=== PATIENT | male | born 1940 | race Caucasian/White ===

== ENCOUNTER 2017-01-20 13:02 | Outpatient (CLI) | payer MEDICARE, OTHER | END 2017-01-20 13:03 | disposition home or self-care (01) | LOC: SC 13:02 | PROVIDERS: ATTEND Nurse Practitioner Family | DX: G47.33 Obstructive sleep apnea (adult) (pediatric) (principal); G47.23 Circadian rhythm sleep disorder, irregular sleep wake type | CPT/HCPCS: 99214; G0463; 99212 ==

== ENCOUNTER 2017-02-18 15:48 | Outpatient (CLI) | payer MEDICARE, OTHER | END 2017-02-18 15:49 | disposition home or self-care (01) | LOC: SC 15:48 | PROVIDERS: ATTEND Nurse Practitioner Family | DX: G47.33 Obstructive sleep apnea (adult) (pediatric) (principal) | CPT/HCPCS: 99214; G0463; 99212 ==

== ENCOUNTER 2017-03-18 19:04 | Outpatient (CLI) | payer MEDICARE, OTHER | END 2017-03-18 19:05 | disposition home or self-care (01) | LOC: SC 19:04 | PROVIDERS: ATTEND Internal Medicine Pulmonary Disease | DX: G47.33 Obstructive sleep apnea (adult) (pediatric) (principal); G47.61 Periodic limb movement disorder | CPT/HCPCS: 95810 ==

== ENCOUNTER 2017-04-10 10:37 | Outpatient (CLI) | payer MEDICARE, OTHER | END 2017-04-10 10:38 | disposition home or self-care (01) | LOC: SC 10:37 | PROVIDERS: ATTEND Nurse Practitioner Family | DX: G47.33 Obstructive sleep apnea (adult) (pediatric) (principal); G47.61 Periodic limb movement disorder | CPT/HCPCS: 99214; G0463; 99212 ==

== ENCOUNTER 2017-05-06 11:05 | Outpatient (CLI) | payer MEDICARE, OTHER | END 2017-05-06 11:06 | disposition EMS.NT | LOC: EMS 11:05 | PROVIDERS: ATTEND Surgery | DX: R42 Dizziness and giddiness (principal); W18.39XA Other fall on same level, initial encounter; Y92.512 Supermarket, store or market as the place of occurrence of the external cause ==

== ENCOUNTER 2017-05-08 03:10 | Outpatient (CLI) | payer MEDICARE, OTHER | END 2017-05-08 03:11 | disposition critical access hospital (66) | LOC: EMS 03:10 | PROVIDERS: ATTEND Surgery | DX: R04.0 Epistaxis (principal); Z79.01 Long term (current) use of anticoagulants | CPT/HCPCS: A0425; A0429 ==

== ENCOUNTER 2017-05-08 03:40 | Emergency (ER) | payer MEDICARE, OTHER ==
[2017-05-08] MEDS ORDERED: LIDOCAINE 2%-EPI 1:100000 20 ML MDV ONE (03:51)
[2017-05-08 04:15] VITALS: BP 119/85
--- NOTE | 2017-05-08 04:26 | ED Physician Documentation ---
PD HPI HEENT - Stated complaint Stated Complaint: BLOODY NOSE - Chief complaint Chief Complaint: Heent - History obtained from History obtained from: Patient, EMS - History of Present Illness Timing - onset: How many hours ago (1), Today Timing - details: Abrupt onset, Still present Location: Nose Similar symptoms before: Has not had sx before Recently seen: Not recently seen - Additional information Additional information: Patient is a 76 year old male who was recently started on supplemental oxygen for a faulty valve. Patient is also on coumadin. Patient woke up tonight to a bloody nose. Patient tried to get it to stop for about 30 minutes but was unsuccessful. Patient called ems who brought the patient in for evaluation. Patient and family state that they have not used any type of humidifier. Review of Systems Constitutional: denies: Fever, Chills Eyes: reports: Reviewed and negative Ears: reports: Reviewed and negative Nose: reports: Epistaxis Throat: denies: Oral lesions / sores, Sore throat Cardiac: denies: Chest pain / pressure, Palpitations Respiratory: reports: Dyspnea : reports: Reviewed and negative Skin: reports: Reviewed and negative Musculoskeletal: reports: Reviewed and negative Neurologic: reports: Generalized weakness, Syncope, Confused, Altered mental status PD PAST MEDICAL HISTORY - Past Medical History Past Medical History: Yes Cardiovascular: Hypertension, High cholesterol, Atrial fibrillation, Murmur, Other Endocrine/Autoimmune: Type 2 diabetes Other Past Medical History: Aortic valve absent. O2 needs 2/2 efficient heart valve - Present Medications Home Medications: Ambulatory Orders Medication Instructions Recorded Confirmed Atorvastatin Calcium 5 mg PO DAILY 05/08/17 05/08/17 Glimepiride 8 mg PO DAILY 05/08/17 05/08/17 Lisinopril 1 tab PO DAILY 05/08/17 05/08/17 Magnesium 1 tab PO DAILY 05/08/17 05/08/17 Sotalol [Betapace] 1 tab PO BID 05/08/17 05/08/17 Torsemide 1 tab PO DAILY PRN 05/08/17 05/08/17 metFORMIN [Glucophage] 2,000 mg PO DAILY 05/08/17 05/08/17 - Allergies Allergies/Adverse Reactions: Allergies Allergy/AdvReac Type Severity Reaction Status Date / Time iodine Allergy Itching Verified 05/08/17 03:45 shellfish derived Allergy Itching Verified 05/08/17 03:45 - Social History Does the pt smoke?: No Smoking Status: Never smoker Does the pt drink ETOH?: No Does the pt have substance abuse?: No - Immunizations Immunizations are current?: Yes PD ED PE NORMAL - Vitals Vital signs reviewed: Yes - General General: Well developed/nourished - HEENT HEENT: Atraumatic, PERRL - Neck Neck: Supple, no meningeal sign - Cardiac Cardiac: RRR - Respiratory Respiratory: No respiratory distress - Abdomen Abdomen: Soft, Non tender, Non distended - Derm Derm: Warm and dry - Extremities Extremities: No deformity - Neuro Neuro: Alert and oriented X 3 - Psych Psych: Normal mood PD ED PE EXPANDED - General General: Alert, Anxious - HEENT HEENT: Left nares epistaxis (significant bleeding of left nare, source not appreciated) - Cardiac Cardiac: Murmur Present Results - Vitals Vitals: Vital Signs - 24 hr 05/08/17 05/08/17 03:45 04:14 Heart Rate 88 84 Respiratory 19 18 Rate Blood Pressure 143/92 H 119/85 H O2 Saturation 87 L 92 Oxygen O2 Source Room air Procedures - Epistaxis Site: Left Preparation: Lidocaine, Clamp / pressure applied Treatment: Ant post rhinorocket Other: Observed - no bleeding, Pt tolerated well, O2 sat WNL, Referred to ENT PD MEDICAL DECISION MAKING - ED course Complexity details: reviewed old records, re-evaluated patient, considered differential, d/w patient, d/w family ED course: Patient was seen and examined at bedside. nares were viewed but the bleeding was two brisk to evaluate the location. Rhino-rocket was soaked in lidocaine with epi before being successfully inserted. Patient was observed in the emergency department with no new bleeding. Patient and family were given detailed discharge and return instructions. Patient required no further work up and was stable for discharge with outpatient follow up. Departure - Departure Disposition: 01 Home, Self Care Clinical Impression: Epistaxis Condition: Good Instructions: ED Nasal Packing Anterior Removable Follow-Up: primary,care provider [Other] - Within 3 Days Comments: Your symptoms today are being caused by a nose bleed, likely secondary to the oxygen. You will need to have the packing removed in 72 hours. You can have it removed by your pmd, ent or in an emergency department. You should return to the emergency department at any time for new, worsening or uncontrollable bleeding.
--- NOTE | 2017-05-08 16:14 | ED Physician Documentation ---
ED Addendum - Addendum Addendum: 05/08/17 16:13 chart accessed to assist preconstruction manager
== END 2017-05-08 04:40 | disposition home or self-care (01) ==
LOC: EDUNIT# → EDBD → ED 03:40
DX: R04.0 Epistaxis (principal); I10 Essential (primary) hypertension; E78.00 Pure hypercholesterolemia, unspecified; E11.9 Type 2 diabetes mellitus without complications; I48.91 Unspecified atrial fibrillation; Q23.0 Congenital stenosis of aortic valve; Z79.84 Long term (current) use of oral hypoglycemic drugs; Z79.01 Long term (current) use of anticoagulants
CPT/HCPCS: 30905; 99283

== ENCOUNTER 2017-09-06 20:29 | Outpatient (CLI) | payer MEDICARE, OTHER | END 2017-09-06 20:30 | disposition home or self-care (01) | LOC: SC 20:29 | PROVIDERS: ATTEND Internal Medicine Pulmonary Disease | DX: Z53.9 Procedure and treatment not carried out, unspecified reason (principal) | CPT/HCPCS: 95811 ==

== ENCOUNTER 2017-12-10 10:02 | Outpatient (CLI) | payer MEDICARE, OTHER | END 2017-12-10 10:03 | disposition home or self-care (01) | LOC: SC 10:02 | PROVIDERS: ATTEND Nurse Practitioner Family | DX: G47.33 Obstructive sleep apnea (adult) (pediatric) (principal); F40.240 Claustrophobia | CPT/HCPCS: 99214; G0463; 99212 ==

== ENCOUNTER 2017-12-27 19:44 | Outpatient (CLI) | payer MEDICARE, OTHER | END 2017-12-27 19:45 | disposition home or self-care (01) | LOC: SC 19:44 | PROVIDERS: ATTEND Internal Medicine Pulmonary Disease | DX: G47.31 Primary central sleep apnea (principal); G47.61 Periodic limb movement disorder | CPT/HCPCS: 95810 ==

== ENCOUNTER 2018-01-12 09:44 | Outpatient (CLI) | payer MEDICARE, OTHER | END 2018-01-12 09:45 | disposition home or self-care (01) | LOC: SC 09:44 | PROVIDERS: ATTEND Internal Medicine Pulmonary Disease | DX: G47.31 Primary central sleep apnea (principal) | CPT/HCPCS: 99213; G0463; 99212 ==

== ENCOUNTER 2018-05-30 07:33 | Outpatient (CLI) | payer MEDICARE, OTHER | END 2018-05-30 07:34 | disposition short-term general hospital (02) | LOC: EMS 07:33 | PROVIDERS: ATTEND Surgery | DX: R73.09 Other abnormal glucose (principal) | CPT/HCPCS: A0425; A0427 ==

== ENCOUNTER 2018-09-29 09:51 | Outpatient (CLI) | payer MEDICARE, OTHER | END 2018-09-29 09:52 | disposition home or self-care (01) | LOC: SC 09:51 | PROVIDERS: ATTEND Internal Medicine Pulmonary Disease | DX: G47.31 Primary central sleep apnea (principal); G47.00 Insomnia, unspecified | CPT/HCPCS: 99213; G0463; 99212 ==

== ENCOUNTER 2018-10-13 19:19 | Outpatient (CLI) | payer MEDICARE, OTHER | END 2018-10-13 19:20 | disposition home or self-care (01) | LOC: SC 19:19 | PROVIDERS: ATTEND Internal Medicine Pulmonary Disease | DX: G47.61 Periodic limb movement disorder (principal) | CPT/HCPCS: 95810 ==

== ENCOUNTER 2018-11-16 13:52 | Outpatient (CLI) | payer MEDICARE, OTHER | END 2018-11-16 13:53 | disposition home or self-care (01) | LOC: SC 13:52 | PROVIDERS: ATTEND Internal Medicine Pulmonary Disease | DX: G47.00 Insomnia, unspecified (principal) | CPT/HCPCS: 99213; G0463; 99212 ==

== ENCOUNTER 2019-02-01 14:46 | Outpatient (CLI) | payer MEDICARE, OTHER ==
--- NOTE | 2019-02-01 15:41 | CONSULTATION NOTE ---
Palliative Care Consultation - Referral Referring Provider: Dr Barbie Casey, [facility] in [place] Time of Visit: 02/01/2019. 10:45 - 12:45 Referral setting: Home Referral Reason: CHF - Information Sources Records reviewed: Previous records reviewed History/Review of Systems obtained from: Patient, Family Exam limitations: No limitations - History of Present Illness Brief History of Present Illness: Thank you, Dr. Casey, for asking the palliative care consult service to be involved in the care of your patient. I am asked to provide support regarding symptom management, clarifying goals, and advance care planning. 78-year-old man with multiple comorbidities including DMII, PAH, recurrent a scites from non-etoh cirrhosis of the liver; chronic insomnia x 2 years. He is living at home with his and would benefit from palliative care support and monitoring as needed. Medical history: Pulmonary arterial hypertension by cath 03/2017; chronic afib on Coumadin; ICD placement 2014; HTN; HLD; CHF (EF 40%); CKD IV; DM II on insulin; COPD; aortic stenosis with bovine valve replacement 2013; h/o PFO (patent foramen ovale) closure 07/2018; former smoker x 58 years. Patient is alert and pleasant. Patient reports insomnia for several years, he is able to fall asleep but wakes up after 1-2 hours and does this throughout the night. He reports being hungry at times and getting up to eat. On the occasions when he can sleep for 7-8 hours he feels much better. Discussed sleep hygiene. Patient and spouse report he's had 4 different sleep studies. 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 The sleep physician notes that patient falls asleep frequently during the day, and so does not sleep much at night. Because of his limited mobility this will be difficult to correct, but the patient is getting sufficient sleep. He recently started mirtazapine but slept excessively, and his said she couldn't wake him up. The dosing was decreased from 15 to 7.5mg, and there are no more problems waking him. Patient also reports he sweat when he eats, this has been going on "for awhile." It often happens when he goes out to eat, or eats fried foods. It happens less frequently when he eats small meals or snacks at home. Patient does report he used to be "big eater" and years ago he weighed 286 lbs. His current baseline weight is 170 lbs, but it's up today at 183 lbs due to ascites. Patient has non-alcoholic cirrhosis of the liver and recurrent ascites. He reports paracentesis is done every 2-3 weeks. Next paracentesis is this Friday. He has an endoscopy scheduled for March and a consultation with his front end software developer after that. Patient reports increasing lower extremity weakness, has difficulty transferring from easy chair to standing. Patient is on cardiac rehab, currently on 2x/week, although today's session he has postponed due to weakness. The plan is to increase his sessions to 3x/week as he gets stronger. Patient also complains of cramps in his left hand. They have used a magnesium oil spray with good results, although the pain returns after a few weeks. Patient has also seen homeopathic cryptologic support specialist [place], for insomnia help. It's been a few months since they've been back. Spouse reports that patient's diabetes is controlled with long acting insulin and short-acting as needed. His most recent A1C was 6.0. It has been as high as 8 in the past. He has seen the unix architect for lesion on R ear, had a biopsy. They said it wasn't the "bad" cancer (melanoma), and they are unclear on what the lesion is, possibly squamous. Patient expresses stress at making a decision to leave it or have it removed. Says he cannot get a straight answer. Patient complains of pain, tenderness in feet, denies neuropathic symptoms (burning, tingling, numbness). Spouse also notes that he is depressed and anxious over his health conditions, but starting sertraline about 2 months ago has improved his mood and lessened his anxiety. Medical/Surgical History - Past Medical History Cardiovascular: reports: Hypertension, High cholesterol, Atrial fibrillation (on coumadin), Murmur, Other (pulmonary arterial hypertension by cath 03/2017) Respiratory: reports: COPD Endocrine/Autoimmune: reports: Type 2 diabetes (on insulin) : reports: Renal insuffiency (CKD IV), Kidney stones Psych: reports: Depression, Anxiety Derm: reports: Other (seborrheeic keratosis) MRSA Hx?: No - Past Surgical History Cardiovascular: reports: Valve replacement (severe aortic stenosis s/p bovine valve replacement 12/2013), AICD (placement 2014), Other (PFO (patent foramen ovale) closure 07/2018. Left atrial appendage occlusion performed during open heart surgery, cardioverted 05/2015.) - Substance History Tobacco Details: Cigarettes (1 ppd x 58 years; quit 2005. No alcohol use.) Social History - Living Situation Living arrangement: At home Living Situation: With spouse/s.o. Support System: Patient and have been 20 years. He worked as a [employer]er, and moved to [facility] 33 years ago. He formerly flew light aircraft, and also enjoyed boating. Patient has one daughter who lives in [place]. Family History - Family History Family History Comment/Other: Father , cause/age unknown. Mother around age 60, cancer. Brother around age 65, bladder cancer. Medications/Allergies - Medications Home Medications: Ambulatory Orders Medication Instructions Recorded Confirmed Sotalol [Betapace] 40 mg PO DAILY 05/08/17 05/08/17 Cholecalciferol (Vitamin D3) 2,000 unit PO DAILY 02/01/19 02/01/19 [Vitamin D] Digoxin 125 mcg PO DAILY 02/01/19 02/01/19 Eplerenone 50 mg PO BID 02/01/19 02/01/19 Ferrous Sulfate 325 mg PO DAILY 02/01/19 02/01/19 Insulin Glargine [Lantus Solostar] 24 units SQ QPM 02/01/19 02/01/19 Insulin Lispro [Humalog Kwikpen 6 units SQ AC PRN MDD if BG > 120 02/01/19 02/01/19 U-100] Lactulose 10 ml PO TIDWM 02/01/19 02/01/19 Mirtazapine 7.5 mg PO .QPM 02/01/19 02/01/19 Multivitamin [Multivitamins] 1 cap PO DAILY 02/01/19 02/01/19 Potassium Chloride 10 meq PO DAILY 02/01/19 02/01/19 [place] Oil 1,000 mg PO .QPM 02/01/19 Selexipag [Uptravi] 600 mcg PO BID 02/01/19 02/01/19 Sertraline [Zoloft] 50 mg PO .QPM 02/01/19 02/01/19 Sildenafil Citrate [Sildenafil] 20 mg PO .BID-TID 02/01/19 02/01/19 Tamsulosin [Flomax] 0.4 mg PO DAILY 02/01/19 02/01/19 Torsemide 20 mg PO DAILY MDD with 100mg tab 02/01/19 02/01/19 = 120mg QD Torsemide 100 mg PO DAILY MDD with 20mg tab 02/01/19 02/01/19 = 120mg QD Turmeric Root Extract [Turmeric] 1,000 mg PO DAILY 02/01/19 02/01/19 Warfarin Sodium 5 mg PO .FOR 4 DAYS/WEEK 02/01/19 02/01/19 Warfarin Sodium [Coumadin] 7 mg PO .FOR 3 DAYS/WEEK 02/01/19 02/01/19 metOLazone [Metolazone] 2.5 mg PO .2X/WEEK 02/01/19 02/01/19 - Allergies Allergies/Adverse Reactions: Allergies Allergy/AdvReac Type Severity Reaction Status Date / Time iodine Allergy Itching Verified 05/08/17 03:45 shellfish derived Allergy Itching Verified 05/08/17 03:45 Review of Systems - Constitutional Constitutional: reports: Fatigue, Diaphoresis (when he eats meals, especially eating out or fried foods), Weight gain (Baseline weight is 170 lbs. Weight today is 181 lbs, yesterday 183 lbs, due to ascites. Paracentesis scheduled for this Friday. Previously patient weighed 286 lbs years ago.) - Ears, Nose & Throat Ears, Nose & Throat: reports: Dentures. denies: Hearing loss (mild/moderate), Hearing aids - Cardiovascular Cardiovascular: reports: Irregular heart rate (afib), Edema, Decr. exercise tolerance - Respiratory Respiratory: denies: Cough, SOB at rest, SOB with exertion - Gastrointestinal Gastrointestinal: reports: Good appetite. denies: Constipation (improved with lactulose) - Genitourinary Genitourinary: denies: Dysuria - Musculoskeletal Musculoskeletal: reports: Transfer issues, Other (denies MSK pain). denies: Assistive devices - Integumentary Integumentary: reports: Other (easily bruises, skin tears) - Neurological Neurological: reports: General weakness, Focal weakness (weak lower extremities) - Psychiatric Psychiatric: reports: Depression (improved on sertraline), Anxiety (improved on sertraline) - Endocrine Endocrine: reports: Diabetes type 2 - Hematologic/Lymphatic Hematologic/Lymphatic: reports: Anemia, Bruising, Bleeding tendencies Physical Exam - Vital Signs Temperature: 96.3 F Pulse Rate: 78 O2 Saturation: 95 (2L O2) Blood Pressure: 91/58 (wrist cuff) - Physical Exam General Appearance: positive: No acute distress, Alert Eyes Bilateral: positive: Normal inspection ENT: positive: No signs of dehydration Neck: positive: Trachea midline Cardiovascular: positive: Regular rate & rhythm, No murmur, No gallop Respiratory: positive: Chest non-tender, No respiratory distress, Diminished throughout Abdomen: positive: Non-tender, Distended (ascites), Taut Skin: positive: Bruising Extremities: positive: Pedal edema (1+), Other (skin of lower extremity appears shiny, taut) Neurologic/Psychiatric: positive: Oriented x3, Mood/affect nml Palliative Care - POLST Patient has POLST: Yes POLST Status: Selective Treatment, Full Code (He wants CPR) Pain: No pain Tiredness/Fatigue: Moderate (4-6) Drowsiness/Sedation: None Nausea: None Depression: Moderate (4-6) Anxiety: Moderate (4-6) Dyspnea: None Anorexia: None Sleep: Sleeps poorly, Variable sleep pattern (falls asleep, but sleeps for only 1-2 hours at a time) Constipation: Comment (has chronic constipation but not since he's been using lactulose) Feelings of wellbeing/Perceived Quality of Life: Fair Performance Status: Continual oxygen 2-3L. Difficulties with self transferring from low easy chair Ambulatory without walker Weak lower extremities Performs ADLs GENEVIEVE INDEX (All-cause 1-year mortality risk for community-dwelling adults age 65 and over): 36.5% Risk calculators cannot predict the future for any one individual. Risk calculators give an estimate of how many people with similar risk factors will live and , but they cannot identify who will live and who will . - Palliative Care Discussion: Patient states he has lost confidence in doctors, and "I don't get straight answers from doctors." He and his reports he has had 2 cardiologists, 2 pulmonologists, a urologist, a front end software developer, a unix architect and has had several PCPs. His big concerns are his heart, his cirrhosis, and his kidney disease. He also is concerned about the chronic insomnia, recurrent cramps in L hand, increased muscle weakness in the lower extremities, sweating when he eats, fingernail biting. For his insomnia, he has tried melatonin, and ambien, neither have worked. Recently he was started on mirtazapine and was over sedated, which was resolved with a dose reduction. Patient does report depression and feeling anxious about his health conditions. We explored this. has noted that starting sertraline has helped, he has been less ramos and anxious. The patient is agreeable to increasing the dosage. We had a long discussion on goals of care and how it relates to the POLST form. Patient does say comfort is more important to him than longevity. He is supportive of hospital transfer and would not want ongoing life support. But he is also concerned about how it would affect his , making it difficult for him to actually express his choice. We had an extended discussion on CPR, and CAR RESTORER provided education on generally poor outcomes. Provided education that the POLST is a guideline and it can be decided on a case by case basis. Patient appeared overwhelmed and repeatedly stated he "could not say," and can't make a decision about CPR vs DNR, selective vs comfort care. We eventually agreed that he remain on CPR, and switched him from full treatment to selective treatment. He does not want to be placed on long-term life support, but short-term is acceptable. His is supportive of his choice. We did discuss the continuum of care, including Hospice and the Hospice benefit; the patient has had a positive experience with Hospice; his first was on Hospice before she . Results - Lab Results Lab results reviewed: Yes Impression and Recommendations - Palliative Care Impression: 78-year-old man with multiple comorbidities including DMII, PAH, recurrent ascites from non-etoh cirrhosis of the liver; chronic insomnia x 2 years. He is living at home with his and would benefit from palliative care oversight and monitoring as needed. Recommendations/Counseling Done: Insomnia: The patient has had 4 sleep studies. 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 The sleep physician notes that patient falls asleep frequently during the day, and so does not sleep much at night. Because of his limited mobility this will be difficult to correct, but he reassured the patient is getting sufficient sleep. Today we discussed sleep hygiene techniques, reiterated that he should avoid sleeping during the day. He will continue on Mirtazapine 7.5mg, decreased from 15mg. Patient eats dinner around 530pm, then a snack 630pm, goes to bed 3 hours later, and says when he wakes up during the night sometimes he is hungry and gets up to eat. Suggested trying to add, about a half hour before bed, a very small snack, low carb, with healthy fat / protein, eg, a few macadamia nuts or cashews Diabetes: Controlled with Lantus every evening and humalog 6 units as needed if BG > 120. Latest A1c is 6.0%. HTN: BP low today, 91/58, spouse reports this is his baseline. They report his lead net software developer wants to keep BP on the low side for the Uptravi / selexipag. PAH: Patient on continuous O2 2-3L. Continue Uptravi / selexipag and sildenafil. Atrial fibrillation: Coumadin for anticoagulation; sotalol for rate control. COPD: On continuous oxygen, 2-3L, checks O2 sats several times per day. Patient is not on any inhalers, denies SOA. CKD: Is following up with urologist shortly. CHF: PFO closure was successfully done July 2018. Is on cardiac rehab, currently twice weekly, with plan to increase to 3x weekly as stamina builds. Continue metolazone, torsemide, and eplerenone and O2. Foot pain: Patient denies neuropathic pain (tingling, numb, burning), has mild ankle edema. Counselled elevation throughout day, light compression hose, or a product like tubigrip. Demonstrated massage techniques, joint manipulation, gentle lymphatic massage. Lesion, R ear: Being followed up by unix architect, biopsy pending. It is irritated by cannula for oxygen, foam pads have not helped. Suggested sewing buttons on to the side of a baseball hat to use has "hooks" for the cannula. Depression with anxiety: Improved after starting sertraline 25mg QPM about 2 months ago. Agreed to trial an increase to sertraline 50mg QPM. Cirrhosis, non-alcoholic: Chronic, recurrent ascites, with recurrent paracentesis Q2-3 weeks. Next scheduled paracentesis is this Friday. Patient has endoscopy scheduled for March and will see the GE physician after that. Continue lactulose. Avoid statins, Tylenol, alcohol. Advance care planning: Revised POLST, still CPR but with selective treatment; abx for prolongation of life; no tube feeding. Patient wants hospitalization but not long-term life support. Time Spent: 120 minutes were spent with more than 50% of the time spent on counseling, education, providing anticipatory guidance and coordination of care with family.
== END 2019-02-01 14:47 | disposition home or self-care (01) ==
LOC: PC 14:46
PROVIDERS: ATTEND Nurse Practitioner
DX: Z51.5 Encounter for palliative care (principal); F51.04 Psychophysiologic insomnia; E11.22 Type 2 diabetes mellitus with diabetic chronic kidney disease; I13.0 Hypertensive heart and chronic kidney disease with heart failure and stage 1 through stage 4 chronic kidney disease, or unspecified chronic kidney disease; N18.4 Chronic kidney disease, stage 4 (severe); I50.9 Heart failure, unspecified; I27.21 Secondary pulmonary arterial hypertension; F41.8 Other specified anxiety disorders; K74.60 Unspecified cirrhosis of liver; I48.91 Unspecified atrial fibrillation; R18.8 Other ascites; J44.9 Chronic obstructive pulmonary disease, unspecified; R53.1 Weakness; R61 Generalized hyperhidrosis; Z79.4 Long term (current) use of insulin; Z79.899 Other long term (current) drug therapy; Z99.81 Dependence on supplemental oxygen; Z79.01 Long term (current) use of anticoagulants; R53.83 Other fatigue; R25.2 Cramp and spasm; M79.673 Pain in unspecified foot; Z87.891 Personal history of nicotine dependence; Z98.890 Other specified postprocedural states
CPT/HCPCS: 99345

== ENCOUNTER 2019-04-20 12:59 | Outpatient (CLI) | payer MEDICARE, OTHER | END 2019-04-20 13:00 | disposition short-term general hospital (02) | LOC: EMS 12:59 | PROVIDERS: ATTEND Surgery | DX: S01.81XA Laceration without foreign body of other part of head, initial encounter (principal); W01.0XXA Fall on same level from slipping, tripping and stumbling without subsequent striking against object, initial encounter; Y92.480 Sidewalk as the place of occurrence of the external cause | CPT/HCPCS: A0425; A0429 ==

== ENCOUNTER 2019-10-04 01:45 | Outpatient (CLI) | payer MEDICARE, OTHER | END 2019-10-04 01:46 | disposition EMS.NT | LOC: EMS 01:45 | PROVIDERS: ATTEND Surgery | DX: Z03.89 Encounter for observation for other suspected diseases and conditions ruled out (principal) ==

== ENCOUNTER 2020-02-28 10:26 | Outpatient (CLI) | payer MEDICARE, OTHER | END 2020-02-28 10:27 | disposition EMS.NT | LOC: EMS 10:26 | PROVIDERS: ATTEND Surgery | DX: R46.89 Other symptoms and signs involving appearance and behavior (principal) ==

== ENCOUNTER 2020-03-13 00:25 | Outpatient (CLI) | payer MEDICARE, OTHER | END 2020-03-13 00:26 | disposition EMS.NT | LOC: EMS 00:25 | PROVIDERS: ATTEND Surgery | DX: Z03.89 Encounter for observation for other suspected diseases and conditions ruled out (principal) ==

== ENCOUNTER → 2020-03-30 | Outpatient (CLI) | payer MEDICARE, OTHER | END | disposition short-term general hospital (02) | LOC: EMS 12:54 | PROVIDERS: ATTEND Surgery | DX: R53.1 Weakness (principal); R03.1 Nonspecific low blood-pressure reading | CPT/HCPCS: A0425; A0427; A0888 ==

== ENCOUNTER 2020-05-06 02:04 | Outpatient (CLI) | payer MEDICARE, OTHER | END 2020-05-06 02:05 | disposition EMS.NT | LOC: EMS 02:04 | PROVIDERS: ATTEND Surgery | DX: S49.92XA Unspecified injury of left shoulder and upper arm, initial encounter (principal); W18.49XA Other slipping, tripping and stumbling without falling, initial encounter; Y92.009 Unspecified place in unspecified non-institutional (private) residence as the place of occurrence of the external cause ==

== ENCOUNTER 2020-05-12 18:01 | Outpatient (CLI) | payer MEDICARE, OTHER | END 2020-05-12 18:02 | disposition critical access hospital (66) | LOC: EMS 18:01 | PROVIDERS: ATTEND Surgery | DX: S00.31XA Abrasion of nose, initial encounter (principal); S41.112A Laceration without foreign body of left upper arm, initial encounter; S41.111A Laceration without foreign body of right upper arm, initial encounter; W18.39XA Other fall on same level, initial encounter; Y92.009 Unspecified place in unspecified non-institutional (private) residence as the place of occurrence of the external cause | CPT/HCPCS: A0425; A0429 ==

== ENCOUNTER 2020-05-12 18:48 | Emergency (ER) | payer MEDICARE, OTHER ==
[2020-05-12] MEDS ORDERED: TETANUS/DIPHTHERIA/PERTUSSIS 0.5 ML SYRINGE IM ONE (18:54)
--- NOTE | 2020-05-12 18:58 | ED Physician Documentation ---
PD HPI Fall - Stated complaint Stated Complaint: GLF - History obtained from History obtained from: EMS - History of Present Illness Mechanism of injury: Slipped - Additional information Additional information: This is a pleasant but demented gentleman who presents by ambulance after a witnessed fall at home. Reportedly fell backwards hitting a planter with the his upper back. There was no loss of consciousness. He has multiple skin tears, some new, some old. Tetanus status is unknown. No loss of consciousness. He is at his mental baseline per family per report from EMS. Review of Systems Ten Systems: 10 systems reviewed and negative Constitutional: reports: Reviewed and negative Ears: reports: Reviewed and negative Nose: reports: Reviewed and negative PD PAST MEDICAL HISTORY - Past Medical History Cardiovascular: Hypertension, High cholesterol, Atrial fibrillation (on coumadin), Murmur, Other (pulmonary arterial hypertension by cath 03/2017) Respiratory: COPD Endocrine/Autoimmune: Type 2 diabetes (on insulin) : Renal insuffiency (CKD IV), Kidney stones Psych: Depression, Anxiety Derm: Other (seborrheeic keratosis) - Past Surgical History Cardiovascular: Valve replacement (severe aortic stenosis s/p bovine valve replacement 12/2013), AICD (placement 2014), Other (PFO (patent foramen ovale) closure 07/2018. Left atrial appendage occlusion performed during open heart surgery, cardioverted 05/2015.) - Present Medications Home Medications: Ambulatory Orders Medication Instructions Recorded Confirmed Sotalol [Betapace] 40 mg PO DAILY 05/08/17 05/08/17 Cholecalciferol (Vitamin D3) 2,000 unit PO DAILY 02/01/19 02/01/19 [Vitamin D] Digoxin 125 mcg PO DAILY 02/01/19 02/01/19 Eplerenone 50 mg PO BID 02/01/19 02/01/19 Ferrous Sulfate 325 mg PO DAILY 02/01/19 02/01/19 Insulin Glargine [Lantus Solostar] 24 units SQ QPM 02/01/19 02/01/19 Insulin Lispro [Humalog Kwikpen 6 units SQ AC PRN MDD if BG > 120 02/01/19 02/01/19 U-100] Lactulose 10 ml PO TIDWM 02/01/19 02/01/19 Mirtazapine 7.5 mg PO .QPM 02/01/19 02/01/19 Multivitamin [Multivitamins] 1 cap PO DAILY 02/01/19 02/01/19 Potassium Chloride 10 meq PO DAILY 02/01/19 02/01/19 Laura Oil 1,000 mg PO .QPM 02/01/19 Selexipag [Uptravi] 600 mcg PO BID 02/01/19 02/01/19 Sertraline [Zoloft] 50 mg PO .QPM 02/01/19 02/01/19 Sildenafil Citrate [Sildenafil] 20 mg PO .BID-TID 02/01/19 02/01/19 Tamsulosin [Flomax] 0.4 mg PO DAILY 02/01/19 02/01/19 Torsemide 20 mg PO DAILY MDD with 100mg tab 02/01/19 02/01/19 = 120mg QD Torsemide 100 mg PO DAILY MDD with 20mg tab 02/01/19 02/01/19 = 120mg QD Turmeric Root Extract [Turmeric] 1,000 mg PO DAILY 02/01/19 02/01/19 Warfarin Sodium 5 mg PO .FOR 4 DAYS/WEEK 02/01/19 02/01/19 Warfarin Sodium [Coumadin] 7 mg PO .FOR 3 DAYS/WEEK 02/01/19 02/01/19 metOLazone [Metolazone] 2.5 mg PO .2X/WEEK 02/01/19 02/01/19 - Allergies Allergies/Adverse Reactions: Allergies Allergy/AdvReac Type Severity Reaction Status Date / Time iodine Allergy Itching Verified 05/08/17 03:45 shellfish derived Allergy Itching Verified 05/08/17 03:45 - Social History Does the pt smoke?: No Smoking Status: Never smoker Does the pt drink ETOH?: No Does the pt have substance abuse?: No - Immunizations Immunizations are current?: Yes - POLST Patient has POLST: Yes PD ED PE NORMAL - Vitals Vital signs reviewed: Yes - General General: Other (A/O x2) - HEENT HEENT: PERRL, EOMI, Other (Scrape over the bridge of the nose, no tenderness.) - Neck Neck: No bony TTP (Maintained in a c-collar pending imaging given advanced age and dementia) - Cardiac Cardiac: RRR, No murmur - Respiratory Respiratory: No respiratory distress, Clear bilaterally, Other (Tender right lower lateral chest wall without visible injury there.) - Abdomen Abdomen: Non tender - Extremities Extremities: Other (Multiple skin tears both forearms, no tenderness or limited range of motion) - Neuro Neuro: No motor deficit, No sensory deficit, Normal speech Eye Opening: Spontaneous Motor: Obeys Commands Results - Vitals Vitals: Vital Signs - 24 hr 05/12/20 18:58 Temperature 36.5 C Heart Rate 87 Respiratory 17 Rate Blood Pressure 102/66 O2 Saturation 98 Oxygen O2 Source Room air - Rads (name of study) Head, C-spine, and chest Radiology: EMP read contemporaneously (No acute disease in the head or neck. Left clavicular fracture and possible compression fractures at T1 and T5 of unclear chronicity.) PD MEDICAL DECISION MAKING - ED course ED course: 79-year-old gentleman with cirrhosis and dementia presents after a fall tonight. He does fall frequently per the , every few days. She is taking excellent general care of him. He had multiple skin tears on both upper extremities which were irrigated, some closed with Mepitel and some with Steri-Strips and Dermabond. He was reexamined after imaging, he has no tenderness of the clavicle on the left, and the knew of a prior injury there so assume this was chronic. Also no tenderness of T1 or T5. Departure - Departure Disposition: 01 Home, Self Care Clinical Impression: Multiple skin tears Injury of back Qualifiers: Encounter type: initial encounter Qualified Code(s): S39.92XA - Unspecified injury of lower back, initial encounter Fall Qualifiers: Encounter type: initial encounter Qualified Code(s): W19.XXXA - Unspecified fall, initial encounter Nasal abrasion Qualifiers: Encounter type: initial encounter Qualified Code(s): S00.31XA - Abrasion of nose, initial encounter Cirrhosis Qualifiers: Hepatic cirrhosis type: unspecified hepatic cirrhosis Ascites presence: with ascites Qualified Code(s): K74.60 - Unspecified cirrhosis of liver; R18.8 - Other ascites Condition: Good Record reviewed to determine appropriate education?: Yes Instructions: ED Dementia Caregiver Support, ED Prevention Fall, ED Avulsion Dermal Comments: Talk with your doctor about re-enrolling with wound care for ongoing care of multiple wounds. Return as needed.
--- NOTE | 2020-05-12 19:36 | CT Report ---
PROCEDURE: CERVICAL SPINE WO INDICATIONS: neck inj, fall TECHNIQUE: Noncontrast 3 mm thick sections acquired from the skull base to the T4 level. Sagittal and coronal r eformats were then constructed. For radiation dose reduction, the following was used: automated exp osure control, adjustment of mA and/or kV according to patient size. COMPARISON: None. FINDINGS: Image quality: Excellent. Bones: There is a comminuted fracture of the medial left clavicle. There is mild depression at the in ferior T1 endplate which has a sclerotic appearance. A prominent vascular groove is noted left aspect of the C2 vertebral body. Moderate to severe degenerative changes are present throughout the mid cer vical spine including intervertebral disc space narrowing, endplate sclerosis, and osteophytosis. Soft tissues: Prevertebral soft tissues are normal in thickness. No paravertebral hematomas. No ap ical pneumothoraces. IMPRESSION: Comminuted displaced medial left clavicular fracture. Mild depression of the inferior T1 endplate which may be a chronic finding. However, acute compressio n forming cannot be excluded. If the patient endorses pain in this region, MRI without contrast could be used to evaluate for marrow edema in the acute setting. No other findings to suggest acute cervical spine injury. Moderate to severe degenerative changes of the cervical spine. Reviewed by: Lilli Craig MD on 05/12/2020 7:34 PM PDT Approved by: Lilli Craig MD on 05/12/2020 7:34 PM PDT Station ID: [id number]
--- NOTE | 2020-05-12 19:42 | CT Report ---
PROCEDURE: HEAD WO INDICATIONS: head inj, fall TECHNIQUE: Noncontrast 4.5 mm thick angled axial sections acquired from the foramen magnum to the vertex. For r adiation dose reduction, the following was used: automated exposure control, adjustment of mA and/or kV according to patient size. COMPARISON: None. FINDINGS: Image quality: Motion artifact somewhat limits evaluation of the skull base. CSF spaces: Basal cisterns are patent. No extra-axial fluid collections. Ventricles are normal in size and shape. Brain: No midline shift. No intracranial masses or hemorrhage. Swift-white matter interface is norm al. There is volume loss, greater than expected for patient age. Deep and periventricular white matte r changes are noted likely associated with chronic microvascular ischemia. Skull and face: Calvarium and visualized facial bones are intact, without suspicious lesions. Sinuses: Visualized sinuses and mastoids are clear. IMPRESSION: 1. Motion artifact somewhat limits evaluation. 2. No acute intracranial findings. 3. Extensive findings likely associated with chronic microvascular ischemic changes. Reviewed by: Lilli Craig MD on 05/12/2020 7:41 PM PDT Approved by: Lilli Craig MD on 05/12/2020 7:41 PM PDT Station ID: [id number]
--- NOTE | 2020-05-12 19:59 | CT Report ---
PROCEDURE: CHEST WO INDICATIONS: chest/back inj, fall TECHNIQUE: Noncontrast 5 mm thick sections acquired from the pulmonary apices to the posterior costophrenic angl es. 7 mm thick coronal and sagittal MIP reformats were then acquired. For radiation dose reduction, the following was used: automated exposure control, adjustment of mA and/or kV according to patient size. COMPARISON: None FINDINGS: Image quality: Breathing motion artifact limits evaluation. Lungs and pleura: Lung volumes are low. There is a trace left and a small right low-density pleural e ffusion. Mediastinum: Heart size is enlarged. There are dense coronary artery calcifications. No pericardial effusion. No mediastinal adenopathy by size criteria. Thoracic aorta and central pulmonary arteries are normal in size. Atheromatous calcifications are present throughout the thoracic aorta. Esophagus is normal in caliber. No hiatal hernia. Bones and chest wall: Patient is status post median sternotomy. There is a comminuted, displaced lef t clavicular head fracture. There are healing anterior inferior left rib fractures suggesting prior t rauma. There are healed posterior right rib fractures. Superior endplate depression is present at T5, the acuity of which is unclear but sclerosis suggests a chronic finding. Abdomen: There is a large amount of low-density abdominal ascites which is only partially characteriz ed. Hypodense lesions within the liver suggest the presence of multiple cysts but are incompletely ch aracterized. IMPRESSION: 1. Comminuted left clavicular head fracture. 2. Superior endplate depression at T5 which appears sclerotic and is likely chronic; however if the p atient endorses point tenderness in this region, acute injury could be suspected. If further characte rization is warranted, noncontrast MRI of this region to evaluate for marrow edema could be used. 3. Small right and trace left low-density pleural effusions. 4. Large amount of abdominal ascites only partially characterized on this limited view of the abdomen . Reviewed by: Lilli Craig MD on 05/12/2020 7:57 PM PDT Approved by: Lilli Craig MD on 05/12/2020 7:57 PM PDT Station ID: [id number]
[2020-05-12 20:18] VITALS: BP 96/76
== END 2020-05-12 20:18 | disposition home or self-care (01) ==
LOC: EDUNIT# → ED 18:48
DX: S51.812A Laceration without foreign body of left forearm, initial encounter (principal); S51.811A Laceration without foreign body of right forearm, initial encounter; S29.9XXA Unspecified injury of thorax, initial encounter; S00.31XA Abrasion of nose, initial encounter; W01.198A Fall on same level from slipping, tripping and stumbling with subsequent striking against other object, initial encounter; Y93.01 Activity, walking, marching and hiking; Y92.009 Unspecified place in unspecified non-institutional (private) residence as the place of occurrence of the external cause; Z23 Encounter for immunization; Z91.81 History of falling; K74.60 Unspecified cirrhosis of liver; R18.8 Other ascites; F03.90 Unspecified dementia, unspecified severity, without behavioral disturbance, psychotic disturbance, mood disturbance, and anxiety; M84.412D Pathological fracture, left shoulder, subsequent encounter for fracture with routine healing; M47.812 Spondylosis without myelopathy or radiculopathy, cervical region; I12.9 Hypertensive chronic kidney disease with stage 1 through stage 4 chronic kidney disease, or unspecified chronic kidney disease; E11.22 Type 2 diabetes mellitus with diabetic chronic kidney disease; N18.4 Chronic kidney disease, stage 4 (severe); Z79.4 Long term (current) use of insulin; I48.91 Unspecified atrial fibrillation; Z95.2 Presence of prosthetic heart valve; Z79.01 Long term (current) use of anticoagulants
CPT/HCPCS: 70450; 71250; 72125; 90471; 99284